=== PATIENT | male | born 1975 | race Caucasian/White ===

== ENCOUNTER 2023-07-16 11:53 | Day surgery (SDC) | payer OTHER, SELFPAY ==
[2023-07-14 15:36] VITALS: BMI 37.7
[2023-07-14 15:46] VITALS: BMI 37.7
--- NOTE | 2023-07-15 09:30 | HO.ANESPROP2 ---
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 Meds Allergies Allergy/AdvReac Type Severity Reaction Status Date / Time cefaclor [From CECLOR] Allergy Intermediate SWELLING Verified 07/16/23 12:12 sumatriptan [From IMITREX] Allergy Intermediate HIVES Verified 07/16/23 12:12 shrimp Allergy Unknown Verified 07/14/23 15:42 Home Medications ?Medication ?Instructions ?Recorded ?Confirmed ?Last Taken ?Type Tums PRN Gastric Reflux 07/14/23 07/14/23 Unknown History bupropion HCl 300 mg 24 hr tablet, 300 mg PO QAM 07/14/23 07/14/23 Unknown History extended release citalopram 40 mg tablet 20 mg PO DAILY 07/14/23 07/14/23 Unknown History propranolol 20 mg tablet 20 mg PO DAILY 07/14/23 07/16/23 07/16/23 08:00 History zolmitriptan 5 mg tablet 5 mg PO DAILY PRN Headache 07/14/23 07/14/23 Unknown History Exam Height,Weight and Vital Signs: Height 5 ft 11 in Weight 122.47 kg Assessment and Plan Assessment Anesthesia Assessment: Chart Reviewed Documented by User: Alexey Ortiz MD 07/16/23 13:15 [facility] Past Medical History Medical History Acid reflux PTSD (post-traumatic stress disorder) Depression Migraines CTS (carpal tunnel syndrome) HTN (hypertension) Functional capacity: uses cane/walker Family History Family history of problems with anesthesia: No Surgical History Surgical History History of tonsillectomy (~1987) History of Problems with Anesthesia: No Social History Social History (Updated 07/14/23 @ 15:44 by Judith Suarez RN) Advance Directives: No Advance Directives Information Provided: Yes Current occupational status: employed 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 Meds Allergies Allergy/AdvReac Type Severity Reaction Status Date / Time cefaclor [From CECLOR] Allergy Intermediate SWELLING Verified 07/16/23 12:12 sumatriptan [From IMITREX] Allergy Intermediate HIVES Verified 07/16/23 12:12 shrimp Allergy Unknown Verified 07/14/23 15:42 Home Medications ?Medication ?Instructions ?Recorded ?Confirmed ?Last Taken ?Type Tums PRN Gastric Reflux 07/14/23 07/14/23 Unknown History bupropion HCl 300 mg 24 hr tablet, 300 mg PO QAM 07/14/23 07/14/23 Unknown History extended release citalopram 40 mg tablet 20 mg PO DAILY 07/14/23 07/14/23 Unknown History propranolol 20 mg tablet 20 mg PO DAILY 07/14/23 07/16/23 07/16/23 08:00 History zolmitriptan 5 mg tablet 5 mg PO DAILY PRN Headache 07/14/23 07/14/23 Unknown History Exam Airway Mallampati Class: II TM Dist: >3cm Loose/Missing/Broken Teeth: No Heart: ok Lungs: ok Assessment and Plan Assessment Anesthesia Assessment: Anesthesia Plan Discussed Final Anesthetic Review Family History of Problems with Anesthesia: No History of Problems with Anesthesia: No NPO: Yes ASA Class: II Final Preanesthetic Review: No Changes in Pt Med Stat, Meds/Allgs Chart Reviewed, Consent Obtained/Reviewed and Anes Risks/Benef Reviewed Patient Risk: Intermediate Procedure Risk: Low Anesthetic Plan Anesthetic Plan: MAC: and Agree w/ Assess. and Plan Disposition: Standard PACU
[2023-07-16 12:32] VITALS: BP 126/78; PULSE 62; RESP 16; TEMP 36.6; O2SAT 99
[2023-07-16] MEDS: Lactated Ringers 1,000 ML 100 ML IVCONT (12:45)
--- NOTE | 2023-07-16 13:01 | MHC.SHP ---
Pre-Procedural Eval Section A - 24 Hr Update-Section A only Date of Service: 07/16/23 The patient is an INPATIENT: No Changes since office visit: No Cold of Flu in the past 2 weeks, No New Medical Problems, No Changes in Medication and No Patient answered all questions The patient has been examined within 24 hours of the surgical procedure. The History & Physical has been completed within 30 days and I have reviewed it.: Yes Section B - Complete if H&P > 30 days Chief Complaint: Other fecal abnormalities Allergies: Allergies Allergy/AdvReac Type Severity Reaction Status Date / Time cefaclor [From CECLOR] Allergy Intermediate SWELLING Verified 07/16/23 12:12 sumatriptan [From IMITREX] Allergy Intermediate HIVES Verified 07/16/23 12:12 shrimp Allergy Unknown Verified 07/14/23 15:42 Plan I have reviewed the history and physical and performed a pertinent physical examination on my patient. No changes have occurred unless specified. Time Spent With Patient Time: Total time managing care of this patient today ____ minutes.
[2023-07-16 13:40] VITALS: BP 108/68; PULSE 58; RESP 16; TEMP 36.8; O2SAT 93
[2023-07-16 13:55] VITALS: BP 101/74; PULSE 62; RESP 16; O2SAT 99
[2023-07-16 14:10] VITALS: BP 113/74; PULSE 60; RESP 18; TEMP 36.6; O2SAT 99
--- NOTE | 2023-07-16 15:16 | OP_ITS ---
DATE OF SERVICE: 07/16/2023 SURGEON: Daniel Worthy MD INDICATIONS: Abnormal findings in stool. PREOPERATIVE DIAGNOSIS: POSTOPERATIVE DIAGNOSIS: PROCEDURE PERFORMED: Colonoscopy to the terminal ileum with snare polypectomy. ESTIMATED BLOOD LOSS: COMPLICATIONS: ANESTHESIA: Monitored anesthesia care. ASSISTANTS: SPECIMENS: DESCRIPTION OF PROCEDURE: A history and physical was performed. The risks and benefits of the procedure were explained to the patient and informed consent was obtained. The patient was placed in the left lateral decubitus position. A digital rectal exam was performed and was found to be normal. The Olympus pediatric video colonoscope was introduced into the rectum and advanced to the cecum. The cecum was identified by transillumination, palpation, and identification of ileocecal valve. Examination was performed and the scope was removed. He tolerated the procedure well and was returned to recovery area in stable condition. FINDINGS: The terminal ileum was examined and appeared normal. The visualized colonic mucosa was normal. The quality of the prep was good with some stool coating the mucosa, mainly in the cecum and rectosigmoid. This was washed and suctioned. A single polyp measuring 8 mm was identified and removed with a cold snare at 30 cm from the anal verge. Retroflexed examination showed some small internal hemorrhoids. IMPRESSION: Colon polyp. RECOMMENDATION: Follow up the biopsy results. MD YARA Loredo/MIKO / [id number]
== END 2023-07-16 14:49 | disposition home or self-care (01) ==
PROVIDERS: PCP Physician Assistant; Visit Provider Internal Medicine Gastroenterology
PROC: 0DJD8ZZ Inspection of Lower Intestinal Tract, Via Natural or Artificial Opening Endoscopic (ICD-10-PCS; CPT 45378; principal; 2023-07-16 13:00)
DX: R19.5 Other fecal abnormalities (principal); D12.6 Benign neoplasm of colon, unspecified; I10 Essential (primary) hypertension; Z88.8 Allergy status to other drugs, medicaments and biological substances
CPT/HCPCS: 45385; 88305; J2704